=== PATIENT | female | born 1995 | race Caucasian/White ===

== ENCOUNTER 2018-04-23 16:44 | Emergency (ER) | payer OTHER ==
[~2018-04-23] VITALS: Ht 165.1 cm; Wt 107.3 kg
[2018-04-23] MEDS ORDERED: IBUPROFEN 800 MG TABLET PO ONE (19:30)
[2018-04-23 19:57] VITALS: BP 121/78
== END 2018-04-23 19:58 | disposition home or self-care (01) ==
LOC: EMS 16:51
DX: L02.413 Cutaneous abscess of right upper limb (principal); M79.89 Other specified soft tissue disorders
CPT/HCPCS: 99283